=== PATIENT | male | born 2000 | race Caucasian/White ===

== ENCOUNTER 2020-10-25 16:51 | Emergency (ER) | payer OTHER ==
[~2020-10-25] VITALS: Ht 182.9 cm; Wt 104.5 kg
[2020-10-25 17:14] VITALS: BP 105/67
[2020-10-25] MEDS ORDERED: ALBU6.7H9 INH (17:23)
== END 2020-10-25 18:30 | disposition home or self-care (01) ==
LOC: ER 16:52
DX: U07.1 COVID-19 (principal); J06.9 Acute upper respiratory infection, unspecified; R05 Cough; R50.9 Fever, unspecified; Z79.899 Other long term (current) drug therapy
CPT/HCPCS: 36415; 99283; U0003; U0005

== ENCOUNTER 2022-03-02 05:54 | Emergency (ER) | payer SELFPAY ==
[~2022-03-02] VITALS: Ht 177.8 cm; Wt 104.5 kg
[~2022-03-02 05:54] MED LIST: ALBU6.7H14 INH
[2022-03-02 06:08] VITALS: BP 136/77
--- NOTE | 2022-03-02 10:00 | NUR ---
PATIENT DENIES SI OR HI.
== END 2022-03-02 10:00 | disposition home or self-care (01) ==
LOC: ER 05:55
DX: F32.A Depression, unspecified (principal); R45.851 Suicidal ideations; Z79.899 Other long term (current) drug therapy
CPT/HCPCS: 99285

== ENCOUNTER 2025-02-03 22:57 | Emergency (ER) | payer MEDICAID, OTHER ==
[~2025-02-03] VITALS: Ht 177.8 cm; Wt 100.0 kg
[2025-02-03 23:28] LABS: MEAN PLATELET VOLUME 7.8 FL (7.4-10.4); RED CELL DISTRIBUTION WIDTH 13.9 % (11.5-14.5)
[2025-02-03 23:55] LABS: LEUKOCYTE ESTERASE ,URINE SMALL (Neg); NITRITES, URINE NEGATIVE (Neg); OCCULT BLOOD,URINE NEGATIVE (Neg)
[2025-02-04] LABS: UA COLLECTION TYPE CLN CATCH MIDSTREAM
[2025-02-04 00:02] LABS: SQUAMOUS EPITHELIAL CELL,UR NONE SEEN /LPF (FEW)
[2025-02-04 00:11] LABS: CREATININE 1.15 MG/DL (0.60-1.10); TOTAL CARBON DIOXIDE 27.7 MMOL/L (24-32); eCRCL 100 ML/MIN; eGFR 76 ML/MIN
--- NOTE | 2025-02-04 00:44 | Physician Documentation ---
History of Present Illness ~ Chief Complaint: Urinary Symptoms Stated Complaint: BURNING DURING URINATION Time Seen by MD: 00:43 Mode of Arrival: POV HPI Patient presents to the emergency room for evaluation of dysuria onset two days. He has a new sexual partner. No fevers or back pain. Medication Reconciliation Allergies: Coded Allergies: No Known Allergies (Unverified , 02/03/25) Scheduled Albuterol Sulfate (Proventil Hfa), 2 PUFFS INH Q6H Past Medical History Past Medical History: No Pertinent History Past Surgical History: noncontributory Alcohol Use: Occasionally Drug Use: none Lives with: Other Lives In: Home Occupation: employed Review of Systems ROS All review of systems negative except as per HPI Physical Exam Vital Signs: Temperature: 97.6, Source: Temporal, Heart Rate: 74, Respiratory Rate: 15, BP: 149/100, Pulse Oximetry: 97, Weight: 100.000 Physical Exam General: Patient is awake, alert, oriented x4 in no acute distress Head: Normocephalic and atraumatic. Eyes: Conjunctival normal. EOMI. PERRL. ENT: Mucous membranes moist. Neck: Supple, trachea is midline. Chest: Clear to auscultation bilaterally without rales, rhonchi, or wheezes. There is no accessory muscle use or retractions. Cardiac: RRR without murmurs, gallops, or rubs. Abd: Soft, nondistended, nontender, with normoactive bowel sounds. No guarding, rebound, or rigidity. Progress Results/Orders Results/Orders Orders - SURESH TIWARI MD Cult Urine + [address] (02/04/25 00:03) Zithromax (02/04/25 00:50) Ceftriaxone Im Kit W/Lidocaine (Rocephin (02/04/25 00:50) Completed Orders - SURESH TIWARI MD Cbc/Diff (02/03/25 23:04) BMP (02/03/25 23:04) Lipase (02/03/25 23:04) CMP (02/03/25 23:04) Ua W/Microscopic, Cult If Ind (02/03/25 23:06) Vital Signs 02/03/25 02/03/25 23:02 23:51 Temp 97.6 Pulse 74 Resp 15 B/P (MAP) 149/100 Pulse Ox 97 Laboratory Tests Test 02/03/25 23:06 02/03/25 23:16 Urine Specimen Description Cln catch midstream Urine Color Yellow Urine Clarity Slightly cloudy Urine pH 8.0 Urine Specific [place] 1.015 Urine Protein Negative Urine Glucose (UA) Negative Urine Ketones 15 H Urine Occult Blood Negative Urine Nitrite Negative Urine Bilirubin Small Urine Urobilinogen 0.2 Urine Leukocyte Esterase Small H Urine RBC 0-2 Urine WBC 10-20 H Urine Squamous Epithelial Cells None seen Urine Bacteria None seen Urine Culture Indicated Indicated Volume Urine Centrifuged 10 ml Urine Comment White Blood Count 6.4 Red Blood Count 5.65 Hemoglobin 16.5 Hematocrit 48.2 Mean Corpuscular Volume 85.2 Mean Corpuscular Hemoglobin 29.2 Mean Corpuscular Hemoglobin Concent 34.2 Red Cell Distribution Width 13.9 Platelet Count 279 Mean Platelet Volume 7.8 Neutrophils (%) (Auto) 54.5 Lymphocytes (%) (Auto) 34.0 Monocytes (%) (Auto) 7.9 Eosinophils (%) (Auto) 2.7 Basophils (%) (Auto) 0.9 Neutrophils # (Auto) 3.5 Lymphocytes # (Auto) 2.2 Monocytes # (Auto) 0.5 Eosinophils # (Auto) 0.2 Basophils # (Auto) 0.1 CBC Comment Sodium Level 141 Potassium Level 4.1 Chloride Level 105 Carbon Dioxide Level 27.7 Anion Gap 8 Blood Urea Nitrogen 11 Creatinine 1.15 H Estimated GFR/1.73 m2 76 BUN/Creatinine Ratio 9.6 L Glucose Level 103 Calcium Level 9.2 Total Bilirubin 0.5 Aspartate Amino Transf (AST/SGOT) 16 Alanine Aminotransferase (ALT/SGPT) 26 Alkaline Phosphatase 49 Total Protein 7.1 Albumin 3.8 Globulin 3.3 Albumin/Globulin Ratio 1.2 Lipase 37 Chemistry Comments Medical Decision Making Additional information obtaine: old records Findings Patient presents to the emergency room for evaluation of dysuria. Differentials include but are not limited to urinary tract infection, chlamydia, gonorrhea, sepsis therefore emergent labs ordered. Labs reassuring aside from urinary tract infection. That has patient does report new sexual partner the possibility of STDs considered we will empirically treat him and I will order a GC chlamydia culture. He has been instructed that he needs to follow up this culture as they he would not likely get a call back as he has been treated appropriately for STDs. He has a acknowledged this. He is also acknowledged with the need to abstain from intercourse with his partner until he that has that has results. Urinary Diff Dx:Considerations: Include: AAA, Aortic dissection, Appendicitis, Appendicitis train, Bowel obstruction, Bladder outlet obstruc., Cholelithiasis, Choleangitis, Cholecystitis, DJD, Epididymitis, Hepatitis, HNP, Impaction, Musculoskeletal pain, Pancreatitis, Postoperative Comp., Prostatitis, Pyelonephritis, Renal failure, Renal infarction, Strain, Urolithiasis, Urinary Obstruction, Urethritis, Urinary retention, UTI, Other Genital Diff Dx:Considerations: Include: Abscess, Balanitis, Balanoposthitis, Cellulitis, Epididymitis, Entrapment injury, Cristofer's gangrene, Foreign body, Facture penis, Hydrocele, Inguinal hernia, Post-op Complication, Paraphimosis, Prostatitis, Priapism, Syphilis, Testicular torsion, Torsion-epididymis, Torsion-appendiceal, Urinary retention, Urethritis, Urethritis-chlamydial, Urethritis-gonococcal, UTI, Other Departure Disposition: HOME / SELF CARE / HOMELESS Impression: Primary Impression: Acute urinary tract infection Condition: Stable Discharge Instructions: Urinary Tract Infection, Adult Additional Instructions: Abstain from intercourse until obtaining results for your chlamydia/gonorrhea test which she would be available in three days. Go through our online portal to get your results or medical records or he could try to call the emergency room in the may help you Referrals: NO PRIMARY CARE PROVIDER (PCP) Prescriptions Cephalexin*Monohydrate* (Keflex*) 500 Mg Capsule 1 CAP PO Q12H for 10 Days, #20 CAP Prov: SURESH TIWARI MD 02/04/25 Signature Scribe Signature: No scribe Attestation: The note accurately reflects work and decisions made by me.Suresh Tiwari MD 02/04/25 00:53 SURESH TIWARI MD Feb 04, 2025 00:44
[2025-02-04] MEDS ORDERED: CEPH-585 PO (00:53)
[2025-02-04] MEDS: CefTRIAXone 1000mg IM Kit (w/lidocaine diluent) IM ONE (01:04)
[2025-02-04 01:14] VITALS: BP 105/77; PULSE 67; RESP 16; TEMP 97.6; O2SAT 98
== END 2025-02-04 02:26 | disposition home or self-care (01) ==
LOC: ER 22:58
DX: N39.0 Urinary tract infection, site not specified (principal); Z72.89 Other problems related to lifestyle; Z79.899 Other long term (current) drug therapy
CPT/HCPCS: 36415; 80053; 81001; 83690; 85025; 87088; 87491; 87591; 96372; 99283; J0696; 81003